=== PATIENT | female | born 1945 | race Caucasian/White ===

== ENCOUNTER → 2018-05-26 | Outpatient (REF) | payer MEDICARE, OTHER ==
[2018-05-28 08:32] LABS: CARCINOEMBRYONIC ANTIGEN 0.6 NG/ML (<2.5)
[2018-05-28 09:01] LABS: CA19-9 TUMOR MARKER,CARBOHYDRA 8.5 U/ML (<35.0)
== END ==
LOC: M LAB REF 17:24
DX: C23 Malignant neoplasm of gallbladder (principal); C24.9 Malignant neoplasm of biliary tract, unspecified
CPT/HCPCS: 82378

== ENCOUNTER → 2018-08-11 | Outpatient (CLI) | payer MEDICARE, OTHER | LOC: M PLARAD 15:14 | DX: C24.9 Malignant neoplasm of biliary tract, unspecified (principal); R93.8 Abnormal findings on diagnostic imaging of other specified body structures | CPT/HCPCS: 78815 ==

== ENCOUNTER → 2018-08-26 | Outpatient (REF) | payer MEDICARE, OTHER ==
[2018-08-27 11:51] LABS: CARCINOEMBRYONIC ANTIGEN 0.8 NG/ML (<2.5)
[2018-08-27 11:51] LABS: CA19-9 TUMOR MARKER,CARBOHYDRA 14.4 U/ML (<35.0)
== END ==
LOC: M LAB REF 13:42
DX: C79.89 Secondary malignant neoplasm of other specified sites (principal); C23 Malignant neoplasm of gallbladder
CPT/HCPCS: 82378

== ENCOUNTER 2018-11-22 05:15 | Emergency (ER) | payer MEDICARE, OTHER ==
[~2018-11-22] VITALS: Ht 144.8 cm; Wt 59.1 kg
[~2018-11-22 05:15] MED LIST: AMLO10TA4 PO; ASPI1TAB PO; ATOR40TA75 PO; CALC600T60 PO; CO Q200C10 PO; DEXA4TA PO; DIOV160T2 PO; HYDR-3910 PO; LABE10TAB PO; LIDO2.5C15 TOP; MULTCAP PO; OLAN10TA2 PO; PROC10TA4 PO; VALS160T PO; ZOFR8TAB24 PO; [UNRECOGNIZED DRUG - CODE] PO
[2018-11-22 07:34] LABS: ALBUMIN 3.2 GM/DL (3.2-5.2); ALT/SGPT 16 U/L (12-78); BILIRUBIN,DIRECT < 0.1 MG/DL (0.0-0.2); BILIRUBIN,TOTAL 0.2 MG/DL (0.2-1.0); BLOOD UREA NITROGEN 13 MG/DL (7-18); CALCIUM LEVEL 8.8 MG/DL (8.8-10.2); CARBON DIOXIDE LEVEL 27 MEQ/L (21-32); CHLORIDE LEVEL 103 MEQ/L (98-107); CREATININE FOR GFR 0.89 MG/DL (0.55-1.30); GLOMERULAR FILTRATION RATE > 60.0 (>39); GLUCOSE, FASTING 99 MG/DL (70-100); SODIUM LEVEL 136 MEQ/L (136-145); TOTAL PROTEIN 5.8 GM/DL (6.4-8.2)
[2018-11-22] MEDS ORDERED: ISOVUE-370 76% 100ML VIAL (Q9967) As Ordered ONE (07:45)
--- NOTE | 2018-11-22 09:21 | REP ---
Clinical: Abdominal pain and urinary retention with history of stage IV gallbladder carcinoma. Technique: Axial contrast enhanced images from the lung bases to the pubic symphysis with coronal and sagittal re-formations using 100 ml Isovue 370 intravenous contrast material. Delayed images of the abdomen and pelvis obtained. Comparison: None. Findings: A moderate to significant amount of ascites is identified within the pelvis. A vague areas of fatty infiltration are noted throughout the mesentery along with scattered soft tissue lesions primarily noted within the pelvis measuring up to approximately 2.8 cm maximal diameter, and findings are compatible with metastatic disease. Liver is relatively normal, but a very subtle ovoid hypodense area is noted along the lateral cortex of the right lobe (images 37-46) which measures approximately 1.5 cm maximal diameter and may reflect a metastatic implant. Splenic calcifications suggest prior granulomas disease or changes related to therapy. The patient is status post cholecystectomy. Pancreas, bilateral adrenal glands and kidneys are relatively normal. The enteric system is without obstruction or obvious acute inflammatory process and a normal appendix is identified in the right lower quadrant. Pelvis demonstrates Riley catheter in collapsed bladder along with the above mentioned large pelvic fluid collection and multiple soft tissue implants compatible with metastatic disease. No free air. No retroperitoneal adenopathy. Atherosclerotic changes to the aorta and vasculature without aneurysm. Musculoskeletal structures demonstrate degenerative changes. Lung bases demonstrate chronic-appearing changes. Impression: 1. [id number] amount of ascites in the pelvis with vague infiltration to the abdominal mesentery and multiple metastatic mass lesions in the pelvis measuring up to approximately 2.8 cm maximal diameter consistent with metastatic disease. 2. Riley catheter in collapsed bladder. 3. Possible small metastatic implant along the hepatic capsule. Electronically Signed by Basil Neal MD 11/22/2018 09:13 A
[2018-11-22 09:44] VITALS: BP 145/84
[2018-11-25] MEDS ORDERED: FLOM0.4C39 PO (10:26)
--- NOTE | 2018-11-27 08:51 | ED PDOC ---
Post-Departure Follow-Up radiology preort faxed to Michelle Painting MD Nov 27, 2018 08:51
== END 2018-11-22 09:57 | disposition home or self-care (01) ==
LOC: M ED 05:15
DX: R33.9 Retention of urine, unspecified (principal); R18.8 Other ascites; C79.9 Secondary malignant neoplasm of unspecified site; C67.9 Malignant neoplasm of bladder, unspecified
CPT/HCPCS: 36415; 51702; 74177; 80048; 80076; 81001; 99284; Q9967

== ENCOUNTER → 2018-12-16 | Outpatient (CLI) | payer MEDICARE, OTHER ==
[~2018-12-16] MED LIST changes: -AMLO10TA4 PO; +AMLO10TA5 PO; +FLOM0.4C39 PO; +TURMCAP PO; +VITAD1000T PO
--- NOTE | 2018-12-16 17:12 | REP ---
Duplex extremity venous ultrasound: Left lower extremity. History: Left leg swelling Findings: The deep veins are anechoic and fully compressible from the groin to the popliteal fossa in the left lower extremity. Color flow imaging is homogeneous. Spectral Doppler interrogation demonstrates intact respiratory variation in flow and normal manual augmentation of flow. There is no evidence of deep vein thrombosis. Impression: Negative left lower extremity duplex venous ultrasound. No evidence of deep vein thrombosis. Electronically Signed by Jose L Agustin MD 12/16/2018 05:03 P
== END ==
LOC: M RAD 16:24
PROVIDERS: ATTEND Internal Medicine Medical Oncology
DX: M79.605 Pain in left leg (principal)

== ENCOUNTER → 2019-03-30 | Outpatient (CLI) | payer MEDICARE, OTHER ==
[~2019-03-30] MED LIST changes: -ASPI1TAB PO; +ASPI81TA26 PO; -DIOV160T2 PO; +DIOV160T3 PO; +RA T500C2 PO; +XARE20TA PO
--- NOTE | 2019-04-01 07:49 | REP ---
HISTORY: History of gallbladder carcinoma. COMPARISON: PET/CT 08/11/2018 which showed hypermetabolic activity in the peritoneal and right pelvic sidewall, right anterior abdominal wall and midline abdominal wall consistent with metastatic disease. After the intravenous administration of 8.10 mCi of FDG-18 triplane whole body PET/CT was performed from the skull base to mid thigh. There is no abnormal hypermetabolic activity seen in the neck, chest, or abdomen. Activity seen previously in the abdominal musculature has abated. There is hypermetabolic activity seen in the pelvis which has the appearance of bowel activity, however, some of the activity within the pelvis is definitively not bowel as the CT scan portion of this examination shows two oval shaped adnexal masses. The left adnexal mass measures approximately 4.5 cm and the right measures approximately 5.4 cm. When this is compared to the latest prior abdominal and pelvic CT of 11/22/2018, these areas were partially obscured by a large degree of ascites. The patient has a history of previous hysterectomy, but I am uncertain if the patient is also BSO. Certainly finally could represent masses or ovarian origin. These have SUV values greater than 7. Multifocal areas of hypermetabolic activity are seen throughout the spine and when this is compared to the prior examination, the SUV readings on these areas have increased from less than 2 to up to 3.6. IMPRESSION: 1. Abnormal hypermetabolic activity seen in the pelvis of uncertain etiology but likely a combination of bowel activity and true adnexal mass activity. Pelvic ultrasonography is recommended for further evaluation along with contrast enhanced CT. 2. Vertebral body uptake as described above. This represents either chemo reactive marrow or possibly skeletal metastases. This needs to be correlated clinically as to when the patient last received chemotherapy. Review of the paperwork which has been given to me does not indicate when the patient last had chemotherapy. If the patient has not recently had chemotherapy, then I would recommend conventional bone scintigraphy to search for metastatic osseous lesions. 3. Other findings as described above. Electronically Signed by Melvin Carrasco DO 04/01/2019 04:36 P
== END ==
LOC: M PLARAD 09:22
PROVIDERS: ATTEND Internal Medicine Hematology & Oncology
DX: R93.3 Abnormal findings on diagnostic imaging of other parts of digestive tract (principal)
CPT/HCPCS: 78815; A9552

== ENCOUNTER → 2019-05-24 | Outpatient (CLI) | payer MEDICARE, OTHER ==
[~2019-05-24] MED LIST changes: +GASTROGRAFIN SOLUTION 30ML (Q9963) As Ordered ONE; +ISOVUE-370 76% 100ML VIAL (Q9967) As Ordered ONE
--- NOTE | 2019-05-24 16:07 | REP ---
CT of the chest without IV contrast: The patient has clinical history of gallbladder carcinoma. Comparison is 06/24/2018. There is a small ground-glass nodule in the apex of the left upper lobe, unchanged. There is a calcified granuloma medially in the lower lobe on image 60, unchanged. There is a tiny 2 mm lung nodule in the left upper lobe on image 32, unchanged. No other lung nodules or masses are identified. There are no infiltrates or effusions. There is no mediastinal, hilar or axillary lymph node enlargement. The thoracic aorta is unremarkable. Cardiac size is mildly enlarged. There is no pericardial effusion. Impression: There is a small ground-glass density in the apex of the left upper lobe, unchanged. There is a tiny 2 mm left upper lobe lung nodule, unchanged. There is a calcified granuloma in the left lower lobe, unchanged. There is no adenopathy, infiltrate or effusion. Electronically Signed by Patrice Dumont MD 05/24/2019 03:58 P
--- NOTE | 2019-05-24 16:17 | REP ---
CT of the abdomen pelvis without and with IV contrast and with bowel contrast: Comparison is 11/22/2018. The patient has history of gallbladder carcinoma. There are numerous surgical clips in the gallbladder fossa as previously. There is mild intrahepatic biliary duct dilatation, likely a consequence of the cholecystectomy. The hepatic parenchyma is otherwise homogeneous. The pancreas is unremarkable. Spleen is unremarkable except for splenic granulomas. The adrenals and kidneys are unremarkable. The abdominal aorta is unremarkable. There is no periaortic adenopathy. There is no bowel distension or obstruction. Pelvis: Previously there were large fluid collections in the pelvis bilaterally. These have significantly reduced in size and now accompanied by soft tissue masses posteriorly in the pelvis compatible with peritoneal metastases. The central portions of these masses are of low density. This may represent represent residual fluid from the previous cysts or central necrosis within the masses. There is no ascites. The bladder is unremarkable except that some of the peritoneal masses encroach the posterior wall of the bladder. There is no bowel obstruction. No lytic, blastic or destructive skeletal changes are identified. Impression: Multiple surgical clips in the gallbladder fossa. Multiple pelvic masses compatible with peritoneal implants versus adenopathy. There are low-density centers within these masses which could represent fluid or central necrosis. The large cysts identified in the pelvis previously are no longer present. There is no retroperitoneal adenopathy. No ascites. No bowel distension or obstruction. Electronically Signed by Patrice Dumont MD 05/24/2019 04:09 P
== END ==
LOC: M RAD 13:08
PROVIDERS: ATTEND Internal Medicine Hematology & Oncology
DX: D64.81 Anemia due to antineoplastic chemotherapy (principal)
CPT/HCPCS: 71260; 74178; Q9963; Q9967

== ENCOUNTER → 2019-09-06 | Outpatient (CLI) | payer MEDICARE, OTHER ==
[~2019-09-06] MED LIST changes: +CHOL100029 PO; -VITAD1000T PO
--- NOTE | 2019-09-06 15:17 | REP ---
CHEST, SINGLE VIEW: Single view of the chest is performed. No infiltrate is seen in either lung. Heart is upper limits of normal in size. There is calcification and tortuosity of the thoracic aorta. Mediastinal silhouette is otherwise unremarkable. There is a right central venous catheter with the tip at the junction of the superior vena cava and right atrium. Metallic prosthesis is seen in each proximal humerus. Electronically Signed by Patrice Arzola MD 09/07/2019 04:15 P
--- NOTE | 2019-09-06 15:42 | REP ---
CT of the chest with IV contrast for restaging carcinoma of the gallbladder: Comparison is 05/24/2019. There is a small ground-glass density in the apex of the left upper lobe, unchanged on image 18. There is a 3 ml nodule laterally in the left upper lobe on image 22, unchanged. There is a calcified granuloma medially in the left lower lobe on image 46, unchanged. There are no other lung nodules or masses. There are no infiltrates or pleural effusions. There is no mediastinal, hilar or axillary lymphadenopathy. The thoracic aorta is unremarkable. Cardiac size is normal. There is no pericardial effusion. There are no lytic, blastic or destructive skeletal lesions. Impression: No change from the prior study. Stable lung nodules as described. No evidence of metastatic disease. Electronically Signed by Patrice Dumont MD 09/06/2019 03:33 P
--- NOTE | 2019-09-06 16:38 | REP ---
CT of the abdomen, pelvis not included for restaging of gallbladder carcinoma: Comparison is 05/24/2019. The study is performed without and with IV contrast and with bowel contrast. After IV contrast imaging is performed initially during the portal venous phase of enhancement and repeated during the delayed equilibrium phase of enhancement. The pelvis is not included, for reasons unknown to this examiner. On the comparison study there were large pelvic masses. These cannot be evaluated on the current study as the pelvis is not included. The study is performed contiguous with the chest CT this same date. The hepatic parenchyma is homogeneous. There are no hepatic metastases. Multiple surgical clips are again identified in the gallbladder fossa as previously. The pancreas and spleen are unchanged and unremarkable. A few calcified granulomas are incidentally noted in the spleen. The adrenals are unremarkable. There is left renal hydronephrosis as an interval change. This may be secondary to the known pelvic masses. There is no right hydronephrosis. There is a small hiatal hernia. This was present previously but is slightly larger today. There is abdominal ascites surrounding the liver and spleen, in the colic gutters bilaterally as an interval change. There are numerous peritoneal implants along the anterior peritoneum as an interval change. There is an umbilical hernia containing a small volume of ascites. There is no bowel distension or obstruction. The abdominal aorta is unremarkable except for calcified atheroma. There is no retroperitoneal adenopathy or mass. The superior portions of the pelvic masses are again identified. Impression: Extensive anterior peritoneal wall implants as an interval change. Diffuse ascites surrounding the liver and spleen and in the colic gutters as an interval change. Left hydronephrosis as an interval change, possibly secondary to the pelvic masses. There is no right hydronephrosis. The pelvis is not included. Only the superior most portions of the known pelvic masses are included in the scan. Electronically Signed by Patrice Dumont MD 09/06/2019 04:29 P
== END ==
LOC: M RAD 11:08
PROVIDERS: ATTEND Internal Medicine Hematology & Oncology
DX: C23 Malignant neoplasm of gallbladder (principal); R91.8 Other nonspecific abnormal finding of lung field; K42.9 Umbilical hernia without obstruction or gangrene; R18.8 Other ascites; K44.9 Diaphragmatic hernia without obstruction or gangrene; I70.0 Atherosclerosis of aorta; N13.30 Unspecified hydronephrosis
CPT/HCPCS: 71045; 71260; 74170; Q9963; Q9967

== ENCOUNTER → 2019-09-21 | Outpatient (CLI) | payer MEDICARE, OTHER ==
[~2019-09-21] MED LIST changes: -GASTROGRAFIN SOLUTION 30ML (Q9963) As Ordered ONE; -ISOVUE-370 76% 100ML VIAL (Q9967) As Ordered ONE
[2019-09-21 15:50] VITALS: BP 125/60
--- NOTE | 2019-09-24 17:30 | REP ---
Ultrasound-guided paracentesis The procedure was performed by NILESH Terry, under the direct supervision of Dr. Arzola. The risks and benefits of the procedure were explained to the patient and informed consent was obtained both verbally and written. Directly prior to the start of the procedure, a formal timeout was completed in the procedure room. Under ultrasound guidance, the largest pocket of fluid in the left flank was localized and skin was marked. The skin was then prepped and draped in a sterile fashion. 10 ml of 1% lidocaine was used as a local anesthetic. Using ultrasound guidance, an 8-Upper Sorbian multi side-hole catheter was inserted using trocar technique. 3,300 mL of nolan colored fluid was withdrawn, 200 ml was sent to the lab for further analysis, and the rest discarded. The patient tolerated the procedure well and there were no immediate complications. After the appropriate monitored convalescence the patient was discharged from the department. Reviewed by NILESH Whitaker 09/21/2019 05:11 P Electronically Signed by Patrice Arzola MD 09/24/2019 05:20 P
== END ==
LOC: M IRPRO 14:10
PROVIDERS: ATTEND Internal Medicine Hematology & Oncology
DX: C79.9 Secondary malignant neoplasm of unspecified site (principal); C23 Malignant neoplasm of gallbladder; R18.0 Malignant ascites

== ENCOUNTER 2019-10-04 07:01 | Outpatient (CLI) | payer MEDICARE, OTHER ==
[~2019-10-04] VITALS: Ht 147.3 cm; Wt 58.0 kg
[2019-10-04] VITALS (10 sets, daily range): BP systolic 100–129; BP diastolic 47–72
[2019-10-04] MEDS ORDERED: ASPI81TA85 PO (07:45)
[2019-10-04] MEDS ORDERED: XARE20TA PO (07:45)
[2019-10-04] MEDS ORDERED: ACETAMINOPHEN TAB 650MG DOSE (2X325MG) PO ONE (08:00)
[2019-10-04] MEDS ORDERED: diphenhydrAMINE 50 MG CAP PO ONE (08:00)
[2019-10-04] MEDS ORDERED: SODIUM CHLORIDE 0.9% INJ 10 ML SYR IV SCH (09:00)
[2019-10-04] MEDS ORDERED: SODIUM CHLORIDE 0.9% INJ 10 ML SYR IV PRN (10:30)
[2019-10-05] MEDS ORDERED: SODIUM CHLORIDE 0.9% INJ 10 ML SYR IV SCH (09:00)
== END 2019-10-04 12:20 | disposition home or self-care (01) ==
LOC: M INFU 07:01
PROVIDERS: ATTEND Internal Medicine Medical Oncology
DX: D64.9 Anemia, unspecified (principal)
CPT/HCPCS: 36430; P9016; P9040

== ENCOUNTER → 2019-10-24 | Outpatient (CLI) | payer MEDICARE, OTHER ==
[~2019-10-24] MED LIST changes: +ACET1TAB55; +ASPI81TA85 PO; +HYDR12CA; +MARI5CAP PO
[2019-10-24 11:03] LABS: PLATELET COUNT, AUTOMATED 253 10^3/uL (150-450)
[2019-10-24 11:12] LABS: INR 1.36; PROTHROMBIN TIME 16.5 SECONDS (11.8-14.0)
[2019-10-24 12:00] VITALS: BP 130/57
--- NOTE | 2019-10-24 15:02 | REP ---
Ultrasound-guided paracentesis The procedure was performed by NILESH Terry, under the direct supervision of Dr. Arzola. The risks and benefits of the procedure were explained to the patient and informed consent was obtained both verbally and written. Directly prior to the start of the procedure, a formal timeout was completed in the procedure room. Under ultrasound guidance, the largest pocket of fluid in the left flank was localized and skin was marked. The skin was then prepped and draped in a sterile fashion. 10 ml of 1% lidocaine was used as a local anesthetic. Using ultrasound guidance, an 8-Slovenian multi side-hole catheter was inserted using trocar technique. 2,300 mL of red tinged colored fluid was withdrawn and discarded. The patient tolerated the procedure well and there were no immediate complications. After the appropriate monitored convalescence the patient was discharged from the department. Reviewed by NILESH Whitaker 10/24/2019 01:18 P Electronically Signed by Patrice Arzola MD 10/24/2019 02:53 P
== END ==
LOC: M IRPRO 10:04
PROVIDERS: ATTEND Internal Medicine Hematology & Oncology
DX: C23 Malignant neoplasm of gallbladder (principal)

== ENCOUNTER 2019-11-01 08:17 | Outpatient (CLI) | payer MEDICARE, OTHER ==
[2019-11-01] VITALS (9 sets, daily range): BP systolic 30–122; BP diastolic 44–62
[~2019-11-01] VITALS: Ht 144.8 cm; Wt 57.2 kg
[~2019-11-01 08:17] MED LIST changes: +ACETAMINOPHEN TAB 650MG DOSE (2X325MG) PO SCH; +diphenhydrAMINE 25 MG CAP PO SCH
[2019-11-01] MEDS ORDERED: SODIUM CHLORIDE 0.9% INJ 10 ML SYR IV PRN (13:00)
[2019-11-02] MEDS ORDERED: SODIUM CHLORIDE 0.9% INJ 10 ML SYR IV SCH (09:00)
== END 2019-11-01 13:15 | disposition home or self-care (01) ==
LOC: M INFU 08:17
PROVIDERS: ATTEND Internal Medicine Medical Oncology
DX: C23 Malignant neoplasm of gallbladder (principal); Z88.7 Allergy status to serum and vaccine; Z91.012 Allergy to eggs
CPT/HCPCS: 36430; P9016

== ENCOUNTER → 2019-11-07 | Outpatient (CLI) | payer MEDICARE, OTHER ==
[~2019-11-07] MED LIST changes: -ACETAMINOPHEN TAB 650MG DOSE (2X325MG) PO SCH; +GASTROGRAFIN SOLUTION 30ML (Q9963) As Ordered ONE; +ISOVUE-370 76% 100ML VIAL (Q9967) As Ordered ONE; -diphenhydrAMINE 25 MG CAP PO SCH
--- NOTE | 2019-11-07 14:46 | REP ---
REASON: Followup. Patient has a history of carcinoma of the gallbladder. All prior abdominal CTs were reviewed, the latest of which is dated 09/06/2019. CONTRAST: 100 mL Isovue 370. The lung bases are stable. There is ascites which is unchanged from the latest prior exam. The liver and spleen are unchanged. The pancreas and adrenal glands are unchanged. The kidneys are unchanged. There is left sided hydronephrosis and hydroureter status quo. There is omental caking. This is unchanged when compared to the latest prior exam but has increased significantly when compared to the next latest prior of 05/24/2019. There is retroperitoneal/paraaortic adenopathy. This is essentially unchanged compared to the latest prior exam. There is no significant change in the appearance of the bowel loops. There are two small ventral hernias status quo and again, through which only mesentery protrudes. Bone window technique through the examination shows no significant in appearance of the osseous structures. IMPRESSION: Ascites, adenopathy, and metastatic peritoneal disease as described above. Other findings as described above. Electronically Signed by Melvin Carrasco DO 11/07/2019 03:44 P
== END ==
LOC: M RAD 12:54
PROVIDERS: ATTEND Internal Medicine Hematology
DX: C23 Malignant neoplasm of gallbladder (principal); K43.9 Ventral hernia without obstruction or gangrene
CPT/HCPCS: 74160; Q9963; Q9967

== ENCOUNTER → 2019-11-10 | Outpatient (CLI) | payer MEDICARE, OTHER ==
[~2019-11-10] MED LIST changes: -GASTROGRAFIN SOLUTION 30ML (Q9963) As Ordered ONE; -ISOVUE-370 76% 100ML VIAL (Q9967) As Ordered ONE
[2019-11-10 12:52] VITALS: BP 124/58
--- NOTE | 2019-11-11 17:19 | REP ---
Ultrasound-guided paracentesis The procedure was performed under the direct supervision of Dr. Arzola. The risks and benefits of the procedure were explained to the patient and informed consent was obtained. The largest pocket of fluid was localized in the left flank using ultrasound guidance. The skin was prepped and draped in a sterile fashion. 1% lidocaine was used as a local anesthetic. Using ultrasound guidance an 8-Anguillan multi side-hole catheter was inserted using trocar technique. 2600 ml of low viscosity red colored fluid was withdrawn and discarded. The patient tolerated the procedure well and there were no immediate complications. After the appropriate amount of monitored convalescence the patient was discharged from the department. Electronically Signed by NILESH Kendall 11/10/2019 04:33 P Electronically Signed by Patrice Arzola MD 11/11/2019 05:09 P
== END ==
LOC: M IRPRO 11:50
PROVIDERS: ATTEND Internal Medicine Hematology
DX: C78.6 Secondary malignant neoplasm of retroperitoneum and peritoneum (principal); C23 Malignant neoplasm of gallbladder; R18.0 Malignant ascites

== ENCOUNTER → 2019-11-21 | Outpatient (CLI) | payer MEDICARE, OTHER ==
--- NOTE | 2019-11-21 14:40 | REP ---
Bilateral lower extremity Duplex Doppler venous ultrasound: Real time compression and duplex Doppler interrogation of the bilateral lower extremity deep venous system is performed. Bilaterally, the common femoral, superficial femoral and popliteal veins are fully compressible with transducer pressure and demonstrate normal spontaneous and phasic flow, without evidence of deep venous thrombosis. Impression: No evidence of deep venous thrombosis of the bilateral lower extremity femoral popliteal venous system. Electronically Signed by Patrice Arzola MD 11/21/2019 02:31 P
== END ==
LOC: M RAD 13:52
PROVIDERS: ATTEND Internal Medicine Hematology
DX: R60.9 Edema, unspecified (principal); C23 Malignant neoplasm of gallbladder

== ENCOUNTER 2019-11-25 10:31 | Emergency (ER) | payer MEDICARE, OTHER ==
[~2019-11-25] VITALS: Ht 144.8 cm; Wt 56.2 kg
[~2019-11-25 10:31] MED LIST changes: -VITA100066 PO
[2019-11-25] MEDS ORDERED: LIDOCAINE 2% 5ML JELLY UROJET TOP ONE (11:15)
[2019-11-25 12:26] LABS: HEMATOCRIT 23.4 % (36.0-47.0); HEMOGLOBIN 7.5 g/dl (12.0-15.5); MEAN CORPUSCULAR HEMOGLOBIN 28.3 pg (27.0-33.0); MEAN CORPUSCULAR HGB CONC 32.1 g/dl (32.0-36.5); MEAN CORPUSCULAR VOLUME 88.3 fl (80.0-96.0); PLATELET COUNT, AUTOMATED 240 10^3/uL (150-450); RED BLOOD COUNT 2.65 10^6/uL (4.00-5.40); WHITE BLOOD COUNT 3.6 10^3/uL (4.0-10.0)
[2019-11-25 12:53] LABS: ATYPICAL LYMPH 1 % (0-5); EOSINOPHILS 3 % (0-3); LYMPHOCYTES 6 % (16-44); MONOCYTES 2 % (0-5); NEUTROPHILS 87 % (28-66); PLATELET ESTIMATE NORMAL (NORMAL)
[2019-11-25 12:55] LABS: ANISOCYTOSIS 2+; CALCIUM LEVEL 8.9 MG/DL (8.8-10.2); CREATININE FOR GFR 1.17 MG/DL (0.55-1.30); GLOMERULAR FILTRATION RATE 48.1 (>39); OVALOCYTES 1+; POIKILOCYTOSIS 2+; POTASSIUM SERUM 4.4 MEQ/L (3.5-5.1); SCHISTOCYTES 1+
[2019-11-25 13:33] VITALS: BP 117/58
[2019-11-28] MEDS ORDERED: VITA100066 PO (10:48)
== END 2019-11-25 13:55 | disposition home or self-care (01) ==
LOC: M ED 10:31
DX: R33.9 Retention of urine, unspecified (principal); I10 Essential (primary) hypertension; Z79.899 Other long term (current) drug therapy; Z79.82 Long term (current) use of aspirin; Z79.01 Long term (current) use of anticoagulants; Z88.7 Allergy status to serum and vaccine; Z91.012 Allergy to eggs

== ENCOUNTER → 2019-11-25 | Outpatient (CLI) | payer MEDICARE, OTHER ==
[~2019-11-25] MED LIST changes: +VITA100066 PO
[2019-11-25 15:15] VITALS: BP 115/59
--- NOTE | 2019-11-25 17:17 | REP ---
Ultrasound-guided paracentesis The procedure was performed by NILESH Terry, under the direct supervision of Dr. Arzola. The risks and benefits of the procedure were explained to the patient and informed consent was obtained both verbally and written. Directly prior to the start of the procedure, a formal timeout was completed in the procedure room. Under ultrasound guidance, the largest pocket of fluid in the left flank was localized and skin was marked. The skin was then prepped and draped in a sterile fashion. 10 ml of 1% lidocaine 10 mg/ml was used as a local anesthetic. Using ultrasound guidance, an 8-Turkish multi side-hole catheter was inserted using trocar technique. 1,500 mL of red colored fluid was withdrawn and discarded. The patient tolerated the procedure well and there were no immediate complications. After the appropriate monitored convalescence the patient was discharged from the department. Reviewed by NILESH Whitaker 11/25/2019 04:08 P Electronically Signed by Patrice Arzola MD 11/25/2019 05:08 P
== END ==
LOC: M IRPRO 13:58
PROVIDERS: ATTEND Internal Medicine Hematology
DX: R18.8 Other ascites (principal); C23 Malignant neoplasm of gallbladder

== ENCOUNTER → 2019-12-09 | Outpatient (CLI) | payer MEDICARE, OTHER ==
[~2019-12-09] MED LIST changes: +STIV40TA PO; -VALS160T PO; +VALS160T2 PO; +VITA100066 PO
[2019-12-09 15:00] VITALS: BP 137/64
--- NOTE | 2019-12-10 04:42 | REP ---
Ultrasound-guided paracentesis The procedure was performed under the direct supervision of Dr. Agustin. The risks and benefits of the procedure were explained to the patient and informed consent was obtained. The largest pocket of fluid was localized in the left flank using ultrasound guidance. The skin was prepped and draped in a sterile fashion. 1% lidocaine was used as a local anesthetic. An 8-Vincentian multi side-hole catheter was inserted using trocar technique. 4800 ml of low viscosity red colored fluid was withdrawn and discarded. The patient tolerated the procedure well and there were no immediate complications. After the appropriate amount of monitored convalescence the patient was discharged from the department. Electronically Signed by NILESH Kendall 12/09/2019 05:56 P Electronically Signed by Jose L Agustin MD 12/10/2019 04:33 A
== END ==
LOC: M IRPRO 13:11
PROVIDERS: ATTEND Internal Medicine Hematology
DX: C67.9 Malignant neoplasm of bladder, unspecified (principal)

== ENCOUNTER → 2019-12-12 | Outpatient (CLI) | payer MEDICARE, OTHER ==
[~2019-12-12] MED LIST changes: -ACET1TAB55; +ACET1TAB55 PO; +ASCO500T PO; +CALCTAB7 PO; +HYOS125TA PO; +LORA0.5T5 PO; +MORP20SO3 PO; +VITA100054 PO
--- NOTE | 2019-12-12 13:18 | REP ---
Duplex extremity venous ultrasound: Left lower extremity. History: Question DVT left lower extremity. Findings: The deep veins are anechoic and fully compressible from the groin to the popliteal fossa in the left lower extremity. Color flow imaging is homogeneous. Spectral Doppler interrogation demonstrates intact respiratory variation in flow and normal manual augmentation of flow. There is no evidence of deep vein thrombosis. Impression: Negative left lower extremity duplex venous ultrasound. No evidence of deep vein thrombosis. Electronically Signed by Jose L Agustin MD 12/12/2019 01:10 P
== END ==
LOC: M RAD 12:37
PROVIDERS: ATTEND Internal Medicine Hematology
DX: M79.605 Pain in left leg (principal); R22.42 Localized swelling, mass and lump, left lower limb

== ENCOUNTER 2019-12-19 11:31 | Inpatient (IN) | payer MEDICARE, OTHER ==
[~2019-12-19 11:31] MED LIST changes: -ASCO500T PO; -CALCTAB7 PO; -HYOS125TA PO; -LORA0.5T5 PO; -MORP20SO3 PO; -VITA100054 PO
--- NOTE | 2019-12-19 13:09 | REP ---
Duplex extremity venous ultrasound: Bilateral lower extremities. History: Right leg pain left leg swelling. Rule out DVT. Findings: The deep veins are anechoic and fully compressible from the groin to the popliteal fossa in the left and right lower extremity. Color flow imaging is homogeneous. Spectral Doppler interrogation demonstrates intact respiratory variation in flow and normal manual augmentation of flow. There is no evidence of deep vein thrombosis. In the popliteal fossa on the left there is a fluid collection consistent with a Delarosa's cyst measuring 2.5 x 2.38 x 1.1 cm. Impression: Small Delarosa's cyst left popliteal soft tissues. Otherwise negative bilateral lower extremity duplex venous ultrasound. No evidence of deep vein thrombosis. Electronically Signed by Jose L Agustin MD 12/19/2019 01:01 P
--- NOTE | 2019-12-19 13:35 | REP ---
Right tibia and fibula: Two views. History: Leg pain. Rule out occult fracture. Findings: Mild soft tissue swelling is seen in the calf soft tissues. There is Achilles and plantar calcaneal spurring. A right knee arthroplasty is seen in position. There is no evidence of fracture, periosteal reaction, or bony destructive lesion. Impression: Mild diffuse soft tissue swelling. Right knee arthroplasty. Heel spurs. No acute bony abnormality. Electronically Signed by Jose L Agustin MD 12/19/2019 07:47 P
[2019-12-19 14:17] LABS: BASO % 0.4 % (0.0-1.0); EOS # 0.1 10^3/uL (0.0-0.5); EOS % 1.2 % (0.0-3.0); HEMATOCRIT 28.3 % (36.0-47.0); LYMPH # 0.6 10^3/uL (1.5-5.0); LYMPH % 12.7 % (24.0-44.0); MEAN CORPUSCULAR HEMOGLOBIN 28.4 pg (27.0-33.0); MEAN CORPUSCULAR HGB CONC 31.8 g/dl (32.0-36.5); MEAN CORPUSCULAR VOLUME 89.3 fl (80.0-96.0); MONO # 0.2 10^3/uL (0.0-0.8); MONO % 3.9 % (0.0-5.0); NEUTROPHILS % 80.8 % (36.0-66.0); PLATELET COUNT, AUTOMATED 356 10^3/uL (150-450); RED BLOOD COUNT 3.17 10^6/uL (4.00-5.40); WHITE BLOOD COUNT 4.9 10^3/uL (4.0-10.0)
[2019-12-19 14:46] LABS: ALBUMIN 2.4 GM/DL (3.2-5.2); ALT/SGPT 13 U/L (12-78); BILIRUBIN,DIRECT 0.2 MG/DL (0.0-0.2); BILIRUBIN,TOTAL 0.5 MG/DL (0.2-1.0); BLOOD UREA NITROGEN 24 MG/DL (7-18); CALCIUM LEVEL 8.9 MG/DL (8.8-10.2); CARBON DIOXIDE LEVEL 24 MEQ/L (21-32); CHLORIDE LEVEL 99 MEQ/L (98-107); CK-MB VALUE MASS < 1.0 NG/ML (<3.6); CPK CREATINE PHOSPHOKINASE 32 U/L (26-192); CREATININE FOR GFR 1.44 MG/DL (0.55-1.30); GLOMERULAR FILTRATION RATE 37.8 (>39); GLUCOSE, FASTING 91 MG/DL (70-100); LIPASE 89 U/L (73-393); MB/CK RELATIVE INDEX 3.12 (< OR =4); POTASSIUM SERUM 4.7 MEQ/L (3.5-5.1); SODIUM LEVEL 135 MEQ/L (136-145); TOTAL PROTEIN 5.3 GM/DL (6.4-8.2); TROPONIN I < 0.02 NG/ML (< 0.10)
[2019-12-19] MEDS ORDERED: ISOVUE-370 76% 100ML VIAL (Q9967) As Ordered ONE (14:54)
--- NOTE | 2019-12-19 15:55 | REP ---
CT of the chest with IV contrast for shortness of breath: Comparison is 09/06/2019. On the comparison study. There is additional clinical history of gallbladder carcinoma. There are no infiltrates or pleural effusions. In the upper abdomen there is diffuse ascites surrounding the liver and spleen, this is unchanged. There are no emboli in the pulmonary trunk or central pulmonary arteries. There are no emboli in the pulmonary lobe or segment branches. There is a right IJ central venous catheter, unchanged. There is a small ground-glass density in the left upper lobe on image 14, and a 3 mm lung nodule in the left upper lobe on image 18, and a calcified granuloma medially in the left lower lobe on image 43. These are unchanged. There are no new lung nodules or masses. The thoracic aorta is unremarkable except for calcified atheroma. Cardiac size is normal. There is no pericardial effusion. There is no hilar, mediastinal or axillary lymph node enlargement. There is a left shoulder arthroplasty. This is unchanged. Impression: There are no pulmonary emboli. There are no infiltrates or pleural effusions. There are lung nodules as described. There are no new lung nodules or masses. No adenopathy. Upper abdominal ascites, unchanged. Right IJ central venous catheter, unchanged. Left shoulder arthroplasty, unchanged. Electronically Signed by Patrice Dumont MD 12/19/2019 03:45 P
--- NOTE | 2019-12-19 16:25 | REP ---
CT of the abdomen /pelvis with IV contrast, without bowel contrast, for generalized abdominal pain: Comparison studies are the CT of the abdomen of 08/19/2019, CT of the abdomen of 09/06/[address] of the abdomen/pelvis of 05/24/2019. On the comparison studies the patient has history of gallbladder carcinoma. There is diffuse abdominal ascites is similar to slightly greater than 11/07/2019. There are surgical clips in the gallbladder fossa, unchanged. There are numerous peritoneal implants. Suspect that these have increased in size from 11/07/2019 . There is right hydronephrosis as an interval change. There is left hydronephrosis, unchanged. I suspect that the hydronephrosis is secondary to peritoneal implants. The peritoneal implants appear to have increased in size. The hepatic parenchyma is homogeneous. In the gallbladder fossa are unchanged. The pancreas is unremarkable. The enhancement pattern of the spleen is mottled, likely from contrast enhancement during the arterial phase. There are bilateral adrenal masses at the inferior tip of the adrenals, as a change from the prior studies. There is periaortic adenopathy. This has increased from the 11/07/2019 study. There is calcified atheroma in the abdominal aorta, unchanged. There is no aortic aneurysm. There are fluid filled loops of small bowel that are borderline dilated. There is no colonic distension. Pelvis: There is report of a hysterectomy. There are bilateral pelvic masses that have increased in size, likely adenopathy. The bladder is distended. I suspect that the loops of the distal sigmoid colon are partially incorporated into the pelvic masses. Impression: History of gallbladder carcinoma. Multiple abdominal and pelvic peritoneal implants. Peritoneal adenopathy resulting in masses. Bilateral hydronephrosis, likely secondary to ureteral obstruction from the pelvic masses. The periaortic adenopathy. Bilateral adrenal masses. Borderline dilated fluid-filled loops of small bowel. The loops of distal sigmoid colon or possibly incorporated some of the pelvic masses. There is no colonic obstruction. Electronically Signed by Patrice Dumont MD 12/19/2019 04:16 P
[2019-12-19] MEDS ORDERED: VITA100054 PO (17:10)
[2019-12-19] MEDS ORDERED: LABE10TAB PO (17:10)
[2019-12-19] MEDS ORDERED: ASCO500T PO (17:10)
[2019-12-19] MEDS ORDERED: CALCTAB7 PO (17:10)
[2019-12-19] MEDS ORDERED: MOM 30ML SUSPENSION UDC PO PRN (17:30)
[2019-12-19] MEDS ORDERED: MAALOX 30 ML SUSP *UDC PO PRN (17:30)
[2019-12-19] MEDS ORDERED: ONDANSETRON 4MG/2ML VIAL (J2405) IV PRN (17:45)
[2019-12-19] MEDS ORDERED: MORPHINE 4 MG/ML 1ML VIAL/SYRINGE (J2270) IV PRN (17:45)
--- NOTE | 2019-12-19 17:53 | HPEPDOC ---
General Date of Admission 12/19/19 Date of Service: Dec 19, 2019 Chief Complaint The patient is a 74-year-old female admitted with a reason for visit of Urinary Pain. Source: Patient, Caregiver Exam Limitations: No limitations Timing/Duration: Other Severity: Mild (few days) Associated Symptoms: Other (. Bilateral leg pains and abdominal pain) History of Present Illness This is 73 years old white female with past medical history of for aggressive gallbladder carcinoma. Also, history of ascites, PE is receiving chemotherapy at the [facility] came in with a chief complaint of unable to urinate. Also complaining of swelling of left leg and pain in her both legs and also di stention of abdomen since last few days. As per patient, patient abdominal pain is dull, persistent increases on palpation. No relief with meds only gets relief with paracentesis, nonradiating and associated nausea. Pain has been present since last few days. Patient denies any complaints of chest pain, shortness of breath, syncope, etc. Home Medications Scheduled Ascorbic Acid (Ascorbic Acid) 500 Mg Tablet, 500 MG PO DAILY, (Reported) Aspirin (Aspir 81) 81 Mg Tablet.dr, 81 MG PO DAILY, (Reported) Atorvastatin Calcium (Atorvastatin Calcium) 40 Mg Tab, 40 MG PO DAILY, (Reporte d) Calcium Carbonate (Calcium) 600 Mg Tablet, 600 MG PO DAILY, (Reported) Cholecalciferol (Vitamin D3) (Vitamin D3) 1,000 Unit Capsule, 2,000 UNIT PO DAILY, (Reported) Labetalol HCl (Labetalol HCl) 100 Mg Tab, 50 MG PO QAM, (Reported) Labetalol HCl (Labetalol HCl) 100 Mg Tablet, 100 MG PO QHS, (Reported) Lidocaine/Prilocaine (Lidocaine-Prilocaine Cream) 1 Cre Cre, 1 APLCT TOP ASDIRECTED APPLY DIME SIZE AMOUNT TO PORT 1-2 HOURS PRIOR TO OFFICE VISIT AND CHEMOTHERAPY TREATMENTS Multivitamin (Multivitamins) 1 Cap Cap, 1 CAP PO DAILY, (Reported) Rivaroxaban (Xarelto) 20 Mg Tablet, 20 MG PO QPM, (Reported) Turmeric Root Extract (Turmeric) 500 Mg Capsule, 500 MG PO DAILY, (Reported) Ubidecarenone (Co Q-10) 200 Mg Cap, 200 MG PO DAILY, (Reported) Scheduled PRN Acetaminophen (Acetaminophen) 325 Mg Tablet, 650 MG PO QID PRN for PAIN, (Reported) Ondansetron HCl (Zofran) 8 Mg Tab, 8 MG PO Q6HP PRN for NAUSEA one tablet by mouth every 6 hours as needed for nausea Prochlorperazine Maleate (Prochlorperazine Maleate) 10 Mg Tab, 10 MG PO Q8H PRN for NAUSEA take one tablet by mouth every 8 hours as needed for nausea Allergies Coded Allergies: Egg Derived (Verified Allergy, Unknown, 02/23/19) egg (Verified Allergy, Unknown, 02/23/19) influenza virus vacc trivalent, spl (Verified Allergy, Unknown, 02/23/19) tetanus toxoid, adsorbed (Verified Allergy, Unknown, 02/23/19) Past Medical History Medical History Carcinoma of the gallbladder, hypertension, hyperlipidemia, vitamin B12 deficiency, PE Surgical History Coppertone levels surgery, right thumb, right knee surgery for right frozen thumb surgery, hysterectomy, MediPort placement. Biopsy of the liver, and bunionectomy Family History Significant Family History: No pertinent family hx Social History * Smoker: Denies Alcohol: Denies Drugs: denies A-FIB/CHADSVASC A-FIB History Current/History of A-Fib/PAF?: No Current PO Anticoag Therapy: Yes Review of Systems Constitutional: Denies: Chills, Fever, Malaise, Night Sweats, Weakness, Fatigue, Weight Loss, Lethargy, Other Eyes: Denies: Pain, Vision change, Conjunctivae inflammation, Eyelid inflammation, Redness, Other ENT: Denies: Head Aches, Ear Pain, Dysphagia, Sinus Congestion, Post Nasal Drip, Sore Throat, Epistaxis, Other Symptoms Skin: Denies: Rash, Lesions, Jaundice, Bruising, Itching, Dry, Breakdown, Nail Changes, Other Pulmonary: Denies: Dyspnea, Cough, Pleuritic Chest Pain, Other Symptoms Cardiovascular: Denies: Chest Pain, Palpitations, Orthopnea, Paroxysmal Noc. Dyspnea, Edema, Lt Headedness, Other Symptoms Gastrointestinal: Reports: Abdominal Pain Genitourinary: Denies: Dysuria, Frequency, Incontinence, Hematuria, Retention, Other Symptoms Hematologic: Denies: Bruising, Bleeding Excessively, Petecchia, Purpura, Enlarged Lymph Nodes, Other Hematologic Endocrine: Denies: Polydipsia, Polyphagia, Polyuria, Heat Intolerance, Cold Intolerance, Other Endocrine Sx Musculoskeletal: Reports: Other Symptoms (, bilateral leg pain and abdominal pain); Denies: Neck Pain, Back Pain, Shoulder Pain, Arm Pain, Hand Pain, Leg Pain, Foot Pain, Joint Pain, Muscle Pain, Spasms Neurological: Denies: Weakness, Numbness, Incoordination, Change in speech, Confusion, Seizures, Other Symptoms Psych: Denies: Mood Normal, Anxiety, Depression, Memory Issues, Thoughts of Self Harm, Anger, Thoughts of Harming Other, Other Psych Physical Examination General Exam: Positive: Alert, Cooperative Eye Exam: Positive: PERRLA, Conjunctiva & lids normal ENT Exam: Positive: Atraumatic Neck Exam: Positive: Supple Chest Exam: Positive: Clear to auscultation, Normal air movement Heart Exam: Positive: Rate Normal, Normal S1, Normal S2 Abdomen Exam: Positive: Other (, distended, mild tenderness all over the abdomen. Bowel sounds present) Extremity Exam: Positive: Other (. Bilateral bipedal edema) Skin Exam: Positive: Nl turgor and temperature Neuro Exam: Positive: Strength at 5/5 X4 ext, Sensation Intact, Cranial Nerves 3-12 NL Psych Exam: Positive: Mood NL, Oriented x 3 Vital Signs Vital Signs Date Time Temp Pulse Resp B/P (MAP) Pulse Ox O2 Delivery O2 Flow Rate FiO2 12/19/19 16:30 85 139/67 (91) 95 Room Air 12/19/19 11:31 97.3 16 Laboratory Data Labs 24H Laboratory Tests 2 12/19/19 12:07: Urine Color YELLOW, Urine Appearance CLEAR, Urine pH 5.0, Urine Specific [place] 1.017, Urine Protein NEGATIVE, Urine Glucose (UA) NEGATIVE, Urine Ketones NEGATIVE, Urine Blood NEGATIVE, Urine Nitrite NEGATIVE, Urine Bilirubin NEGATIVE, Urine Urobilinogen 0.2, Urine Leukocyte Esterase NEGATIVE, Urine WBC (Auto) 2, Urine RBC (Auto) 26H, Urine Hyaline Casts (Auto) 0, Urine Bacteria (Auto) NEGATIVE, Urine Squamous Epithelial Cells 0, Urine Uric Acid Crystals (Auto) SMALL, Urine Amorphous Sediment SMALLH, Urine Sperm (Auto) 12/19/19 14:02: Immature Granulocyte % (Auto) 1.0, Neutrophils (%) (Auto) 80.8H, Lymphocytes (%) (Auto) 12.7L, Monocytes (%) (Auto) 3.9, Eosinophils (%) (Auto) 1.2, Basophils (%) (Auto) 0.4, Neutrophils # (Auto) 4.0, Lymphocytes # (Auto) 0.6L, Monocytes # (Auto) 0.2, Eosinophils # (Auto) 0.1, Basophils # (Auto) 0.0, Nucleated Red Blood Cells % (auto) 0.0, Anion Gap 12, Glomerular Filtration Rate 37.8L, Calcium Level 8.9, Total Bilirubin 0.5, Direct Bilirubin 0.2, Aspartate Amino Transf (AST/SGOT) 28, Alanine Aminotransferase (ALT/SGPT) 13, Alkaline Phosphatase 58, Total Creatine Kinase 32, Creatine Kinase MB < 1.0, Creatine Kinase MB Relative Index 3.12, Troponin I < 0.02, Total Protein 5.3L, Albumin 2.4L, Albumin/Globulin Ratio 0.83L, Lipase 89, Thyroid Stimulating Hormone (TSH) 2.240, Free Thyroxine 1.60H CBC/BMP Laboratory Tests 12/19/19 14:02 Problems (1) Cancer of gallbladder Onset Date: ~ 2017 Status: Acute Problem Text: 73 years old lady diagnosed with gallbladder carcinoma under chemotherapy at [facility]. , Heart rate is 85, blood pressure 139/67, pulse ox 95% on room air Patient. WBC count is 4.9, hemoglobin 9, hematocrit 29.3, platelets 356. Electrolytes are normal with BUN 24, creatinine 1.44. Urine showed RBC [address] abdomen and pelvis shows multiple abdominal pelvic pericardial implants, peritoneal adenopathy which looks like masses. Bilateral hydronephrosis secondary to ureteral obstruction from pelvic masses Periaortic adenopathy, bilateral adrenal masses borderline dilated fluid-filled loops of small bowel and loops of sigmoid colon and possibly incorporated some of the pelvic masses but no small bowel or large bowel obstruction Admit patient to MedSurg floor IV fluids normal saline at 70 mL per hour Pain management with morphine 4 mg IV every 4 hours when necessary Zofran 4 mg IV every 4 hours when necessary for nausea, vomiting Riley's catheter for urinary obstruction Hold apixaban, temperature paracentesis performed and done DVT prophylaxis with bilateral SCDs Continue all home meds Had extensive discussion with patient and her stepdaughter at bedside and poor prognosis was explained and patient was given the option of hospice or comfort care measures. Considering patient's extended and basal carcinoma, not responding to chemotherapy. Patient and family will think about it and will inform me (2) Malignant ascites Status: Acute Problem Text: Will get therapeutic paracentesis done tomorrow with INR Labs in a.m. (3) Urinary (tract) obstruction Status: Chronic Problem Text: Secondary to ureteral obstruction bilaterally by pelvic masses Will place a Riley catheter and and monitor I&O's Might require nephrostomy tube if unable to drain by placing Riley in the bladder Plan / VTE VTE Prophylaxis Ordered?: Yes KENYA GUEVARA MD Dec 19, 2019 17:53
[2019-12-19 21:00] VITALS: BP 153/83
[2019-12-19] MEDS ORDERED: HEPARIN SOD (PORCINE) 5000 UNITS/ML VIAL SC SCH (21:00)
[2019-12-19] MEDS ORDERED: RIVAROXABAN 20 MG TAB (XARELTO) PO SCH (21:00)
[2019-12-19 21:10] LABS: HEMATOCRIT 29.4 % (36.0-47.0); HEMOGLOBIN 9.4 g/dl (12.0-15.5); MEAN CORPUSCULAR HEMOGLOBIN 28.1 pg (27.0-33.0); MEAN CORPUSCULAR VOLUME 87.8 fl (80.0-96.0); PLATELET COUNT, AUTOMATED 365 10^3/uL (150-450); RED BLOOD COUNT 3.35 10^6/uL (4.00-5.40); WHITE BLOOD COUNT 5.7 10^3/uL (4.0-10.0)
[2019-12-19 21:48] LABS: ALBUMIN 2.5 GM/DL (3.2-5.2); BILIRUBIN,TOTAL 0.4 MG/DL (0.2-1.0); CALCIUM LEVEL 9.1 MG/DL (8.8-10.2); CREATININE FOR GFR 1.52 MG/DL (0.55-1.30); GLOMERULAR FILTRATION RATE 35.5 (>39); POTASSIUM SERUM 4.9 MEQ/L (3.5-5.1); TOTAL PROTEIN 5.4 GM/DL (6.4-8.2)
[2019-12-19] MEDS: LABETALOL 100 MG TAB PO SCH (22:10)
[2019-12-19] MEDS: ACETAMINOPHEN TAB 650MG DOSE (2X325MG) PO PRN (22:11)
[2019-12-19] MEDS: DOCUSATE SODIUM 100 MG CAP PO SCH (22:11)
[2019-12-20 05:33] VITALS: BP 126/55
[2019-12-20 06:05] VITALS: BP 115/58
[2019-12-20] MEDS ORDERED: PILL CUTTER 1 EACH XX PRN (06:15)
[2019-12-20] MEDS ORDERED: ASPIRIN 81 MG ENTERIC TAB PO SCH (09:00)
[2019-12-20] MEDS: ASCORBIC ACID 500 MG TAB PO SCH (09:44)
[2019-12-20] MEDS: VITAMIN D 1,000 INTERNATIONAL UNITS TABLET PO SCH (09:44)
[2019-12-20] MEDS: DOCUSATE SODIUM 100 MG CAP PO SCH ×2 (09:44→20:59)
[2019-12-20] MEDS: ATORVASTATIN 20 MG TAB PO SCH (09:44)
[2019-12-20] MEDS: LABETALOL 100 MG TAB PO SCH ×2 (09:47→20:59)
--- NOTE | 2019-12-20 10:42 | IPNPDOC ---
Subjective Date Seen The patient was seen on 12/20/19. Subjective Chief Complaint/HPI Patient is awaiting paracentesis in no apparent distress again comfort care and hospice care was extensively discussed with her General: Denies: ROS Unobtainable, Chills, Night Sweats, Fatigue, Malaise, Normal Appetite, Other Symptoms Constitutional: Denies: Chills, Fever, Malaise, Night Sweats, Weakness, Fatigue, Weight Loss, Lethargy, Other Skin: Denies: Rash, Lesions, Jaundice, Bruising, Itching, Dry, Breakdown, Nail Changes, Other Pulmonary: Denies: Dyspnea, Cough, Pleuritic Chest Pain, Other Symptoms Cardiovascular: Denies: Chest Pain, Palpitations, Orthopnea, Paroxysmal Noc. Dyspnea, Edema, Lt Headedness, Other Symptoms Gastrointestinal: Denies: Nausea, Vomiting, Abdominal Pain, Diarrhea, Constipat ion, Melena, Hematochezia, Other Symptoms Musculoskeletal: Denies: Neck Pain, Back Pain, Shoulder Pain, Arm Pain, Hand Pain, Leg Pain, Foot Pain, Joint Pain, Muscle Pain, Spasms, Other Symptoms Neurological: Denies: Weakness, Numbness, Incoordination, Change in speech, Confusion, Seizures, Other Symptoms Objective Physical Examination Neck Exam: Positive: Supple Chest Exam: Positive: Clear to auscultation, Normal air movement Heart Exam: Positive: Rate Normal, Normal S1, Normal S2 Abdomen Exam: Positive: Other (, distended, mild tenderness all over the abdomen. Bowel sounds present) Extremity Exam: Positive: Other (. Bilateral bipedal edema) Skin Exam: Positive: Nl turgor and temperature Neuro Exam: Positive: Strength at 5/5 X4 ext, Sensation Intact, Cranial Nerves 3-12 NL Psych Exam: Positive: Mood NL, Oriented x 3 Assessment /Plan Problems (1) Cancer of gallbladder Status: Chronic Problem Text: 73 years old lady diagnosed with gallbladder carcinoma under chemotherapy at [facility]. , Heart rate is 85, blood pressure 139/67, pulse ox 95% on room air Patient. WBC count is 4.9, hemoglobin 9, hematocrit 29.3, platelets 356. Electrolytes are normal with BUN 24, creatinine 1.44. Urine showed RBC [address] abdomen and pelvis shows multiple abdominal pelvic pericardial implants, peritoneal adenopathy which looks like masses. Bilateral hydronephrosis secondary to ureteral obstruction from pelvic masses Periaortic adenopathy, bilateral adrenal masses borderline dilated fluid-filled loops of small bowel and loops of sigmoid colon and possibly incorporated some of the pelvic masses but no small bowel or large bowel obstruction Admit patient to MedSur floor IV fluids normal saline at 70 mL per hour Pain management with morphine 4 mg IV every 4 hours when necessary Zofran 4 mg IV every 4 hours when necessary for nausea, vomiting Riley's catheter for urinary obstruction Hold apixaban, temperature paracentesis performed and done DVT prophylaxis with bilateral SCDs Continue all home meds Had extensive discussion with patient and her stepdaughter at bedside and poor prognosis was explained and patient was given the option of hospice or comfort care measures. Considering patient's extended carcinoma, not responding to chemotherapy. Patient and family will think about it and will inform me (2) Malignant ascites Status: Chronic Problem Text: Will get therapeutic paracentesis done tomorrow with INR Labs in a.m. (3) Urinary retention Status: Acute Problem Text: Secondary to ureteral obstruction bilaterally by pelvic masses Riley catheter was placed in with 400 mL of urinary output Monitor I and O Might require nephrostomy tube if does not opt for comfort care Plan/VTE VTE Prophylaxis Ordered?: Yes VS, I&O, 24H, Fishbone Vital Signs/I&O Vital Signs Date Time Temp Pulse Resp B/P (MAP) Pulse Ox O2 Delivery O2 Flow Rate FiO2 12/20/19 09:47 83 118/55 12/20/19 06:05 97.9 20 96 Room Air I&O- Last 24 Hours up to 6 AM 12/20/19 06:00 Intake Total 150 ml Output Total 350 ml Balance -200 ml Laboratory Data 24H LABS Laboratory Tests 2 12/19/19 12:07: Urine Color YELLOW, Urine Appearance CLEAR, Urine pH 5.0, Urine Specific [place] 1.017, Urine Protein NEGATIVE, Urine Glucose (UA) NEGATIVE, Urine Ketones NEGATIVE, Urine Blood NEGATIVE, Urine Nitrite NEGATIVE, Urine Bilirubin NEGATIVE, Urine Urobilinogen 0.2, Urine Leukocyte Esterase NEGATIVE, Urine WBC (Auto) 2, Urine RBC (Auto) 26H, Urine Hyaline Casts (Auto) 0, Urine Bacteria (Auto) NEGATIVE, Urine Squamous Epithelial Cells 0, Urine Uric Acid Crystals (Auto) SMALL, Urine Amorphous Sediment SMALLH, Urine Sperm (Auto) 12/19/19 14:02: Immature Granulocyte % (Auto) 1.0, Neutrophils (%) (Auto) 80.8H, Lymphocytes (%) (Auto) 12.7L, Monocytes (%) (Auto) 3.9, Eosinophils (%) (Auto) 1.2, Basophils (%) (Auto) 0.4, Neutrophils # (Auto) 4.0, Lymphocytes # (Auto) 0.6L, Monocytes # (Auto) 0.2, Eosinophils # (Auto) 0.1, Basophils # (Auto) 0.0, Nucleated Red Blood Cells % (auto) 0.0, Anion Gap 12, Glomerular Filtration Rate 37.8L, Calcium Level 8.9, Total Bilirubin 0.5, Direct Bilirubin 0.2, Aspartate Amino Transf (AST/SGOT) 28, Alanine Aminotransferase (ALT/SGPT) 13, Alkaline Phosphat ase 58, Total Creatine Kinase 32, Creatine Kinase MB < 1.0, Creatine Kinase MB Relative Index 3.12, Troponin I < 0.02, Total Protein 5.3L, Albumin 2.4L, Albumin/Globulin Ratio 0.83L, Lipase 89, Thyroid Stimulating Hormone (TSH) 2.240, Free Thyroxine 1.60H 12/19/19 21:06: Nucleated Red Blood Cells % (auto) 0.0, Anion Gap 9, Glomerular Filtration Rate 35.5L, Calcium Level 9.1, Total Bilirubin 0.4, Aspartate Amino Transf (AST/SGOT) 31, Alanine Aminotransferase (ALT/SGPT) 15, Alkaline Phosphatase 60, Total Protein 5.4L, Albumin 2.5L, Albumin/Globulin Ratio 0.86L CBC/BMP Laboratory Tests 12/19/19 14:02 12/19/19 21:06 KENYA GUEVARA MD Dec 20, 2019 10:42
[2019-12-20 14:00] VITALS: BP 123/59
--- NOTE | 2019-12-20 20:31 | ECGEPIP ---
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
[2019-12-20] MEDS: CALCIUM CARBONATE 500 MG CHEW U/D PO PRN (20:59)
[2019-12-20 22:00] VITALS: BP 134/66
[2019-12-21 06:00] VITALS: BP 132/66
[2019-12-21] MEDS: DOCUSATE SODIUM 100 MG CAP PO SCH ×2 (10:46→20:33)
[2019-12-21] MEDS: ASCORBIC ACID 500 MG TAB PO SCH (10:47)
[2019-12-21] MEDS: ATORVASTATIN 20 MG TAB PO SCH (10:47)
[2019-12-21] MEDS: VITAMIN D 1,000 INTERNATIONAL UNITS TABLET PO SCH (10:47)
[2019-12-21] MEDS: LABETALOL 100 MG TAB PO SCH ×2 (10:49→20:34)
--- NOTE | 2019-12-21 10:54 | IPNPDOC ---
Subjective Date Seen The patient was seen on 12/21/19. Subjective Chief Complaint/HPI Patient is scheduled for paracentesis from malignant ascites today in no apparent distress General: Denies: ROS Unobtainable, Chills, Night Sweats, Fatigue, Malaise, Normal Appetite, Other Symptoms Constitutional: Denies: Chills, Fever, Malaise, Night Sweats, Weakness, Fatigue, Weight Loss, Lethargy, Other Pulmonary: Denies: Dyspnea, Cough, Pleuritic Chest Pain, Other Symptoms Cardiovascular: Denies: Chest Pain, Palpitations, Orthopnea, Paroxysmal Noc. Dyspnea, Edema, Lt Headedness, Other Symptoms Gastrointestinal: Denies: Nausea, Vomiting, Abdominal Pain, Diarrhea, Constipation, Melena, Hematochezia, Other Symptoms Musculoskeletal: Denies: Neck Pain, Back Pain, Shoulder Pain, Arm Pain, Hand Pain, Leg Pain, Foot Pain, Joint Pain, Muscle Pain, Spasms, Other Symptoms Neurological: Denies: Weakness, Numbness, Incoordination, Change in speech, Confusion, Seizures, Other Symptoms Objective Physical Examination Neck Exam: Positive: Supple Chest Exam: Positive: Clear to auscultation, Normal air movement Heart Exam: Positive: Rate Normal, Normal S1, Normal S2 Abdomen Exam: Positive: Other (, distended, mild tenderness all over the abdomen. Bowel sounds present) Extremity Exam: Positive: Other (. Bilateral bipedal edema) Skin Exam: Positive: Nl turgor and temperature Neuro Exam: Positive: Strength at 5/5 X4 ext, Sensation Intact, Cranial Nerves 3-12 NL Psych Exam: Positive: Mood NL, Oriented x 3 Assessment /Plan Problems (1) Cancer of gallbladder Status: Chronic Problem Text: 73 years old lady diagnosed with gallbladder carcinoma under chemotherapy at [facility]. , Heart rate is 85, blood pressure 139/67, pulse ox 95% on room air Patient. WBC count is 4.9, hemoglobin 9, hematocrit 29.3, platelets 356. Electrolytes are normal with BUN 24, creatinine 1.44. Urine showed RBC [address] abdomen and pelvis shows multiple abdominal pelvic pericardial implants, peritoneal adenopathy which looks like masses. Bilateral hydronephr osis secondary to ureteral obstruction from pelvic masses Periaortic adenopathy, bilateral adrenal masses borderline dilated fluid-filled loops of small bowel and loops of sigmoid colon and possibly incorporated some of the pelvic masses but no small bowel or large bowel obstruction DVT prophylaxis with bilateral SCDs Continue all home meds Had extensive discussion with patient and her stepdaughter at bedside and poor prognosis was explained and patient was given the option of hospice or comfort care measures. Considering patient's extended carcinoma, not responding to chemotherapy. Patient and family will think about it and will inform me Patient is scheduled for paracentesis for malignant ascites today Continue Riley care Will discuss with patient and family again regarding comfort care monitor if not, then patient can be discharged home with indwelling Riley catheter for urinary obstruction and follow up with her oncologist as an outpatient (2) Malignant ascites Status: Chronic Problem Text: Patient is scheduled for paracentesis today Possible discharge home. Patient is stable clinically. Today (3) Urinary retention Status: Acute Problem Text: Secondary to ureteral obstruction bilaterally by pelvic masses Riley catheter was placed in with 400 mL of urinary output Monitor I and O Might require nephrostomy tube if does not opt for comfort care Plan/VTE VTE Prophylaxis Ordered?: Yes VS, I&O, 24H, Fishbone Vital Signs/I&O Vital Signs Date Time Temp Pulse Resp B/P (MAP) Pulse Ox O2 Delivery O2 Flow Rate FiO2 12/21/19 09:03 78 16 95 Room Air 12/21/19 08:25 98.6 12/21/19 06:00 132/66 (88) I&O- Last 24 Hours up to 6 AM 12/21/19 06:00 Intake Total 750 ml Output Total 550 ml Balance 200 ml KENYA GUEVARA MD Dec 21, 2019 10:54
[2019-12-21] MEDS ORDERED: SODIUM CHLORIDE 0.9% INJ 10 ML SYR IV PRN (11:30)
--- NOTE | 2019-12-21 13:22 | REP ---
Ultrasound-guided paracentesis The procedure was performed by NILESH Terry, under the direct supervision of Dr. Agustin. The risks and benefits of the procedure were explained to the patient and informed consent was obtained both verbally and written. Directly prior to the start of the procedure, a formal timeout was completed in the procedure room. Under ultrasound guidance, the largest pocket of fluid in the left flank was localized and skin was marked. The skin was then prepped and draped in a sterile fashion. 10 ml of 1% lidocaine 10 mg/ml was used as a local anesthetic. Using ultrasound guidance, an 8-Sami multi side-hole catheter was inserted using trocar technique. 3,000 mL of dark compa colored fluid was withdrawn and discarded. The patient tolerated the procedure well and there were no immediate complications. After the appropriate monitored convalescence the patient was discharged from the department. Reviewed by NILESH Whitaker 12/21/2019 09:29 A Electronically Signed by Jose L Agustin MD 12/21/2019 01:13 P
[2019-12-21 14:00] VITALS: BP 116/56
[2019-12-21] MEDS: ACETAMINOPHEN TAB 650MG DOSE (2X325MG) PO PRN (20:33)
[2019-12-21 22:00] VITALS: BP 139/68
[2019-12-22 06:00] VITALS: BP 128/68
[2019-12-22 06:04] LABS: BASO % 0.5 % (0.0-1.0); EOS # 0.2 10^3/uL (0.0-0.5); EOS % 2.7 % (0.0-3.0); HEMATOCRIT 29.2 % (36.0-47.0); HEMOGLOBIN 9.4 g/dl (12.0-15.5); LYMPH # 1.2 10^3/uL (1.5-5.0); LYMPH % 19.7 % (24.0-44.0); MEAN CORPUSCULAR HEMOGLOBIN 28.7 pg (27.0-33.0); MEAN CORPUSCULAR HGB CONC 32.2 g/dl (32.0-36.5); MEAN CORPUSCULAR VOLUME 89.3 fl (80.0-96.0); MONO # 0.5 10^3/uL (0.0-0.8); MONO % 9.2 % (0.0-5.0); NEUTROPHILS # 3.9 10^3/uL (1.5-8.5); NEUTROPHILS % 67.4 % (36.0-66.0); PLATELET COUNT, AUTOMATED 317 10^3/uL (150-450); RED BLOOD COUNT 3.27 10^6/uL (4.00-5.40); WHITE BLOOD COUNT 5.9 10^3/uL (4.0-10.0)
[2019-12-22 06:28] LABS: ALBUMIN 2.1 GM/DL (3.2-5.2); BILIRUBIN,TOTAL 0.3 MG/DL (0.2-1.0); CALCIUM LEVEL 7.8 MG/DL (8.8-10.2); CREATININE FOR GFR 1.51 MG/DL (0.55-1.30); GLOMERULAR FILTRATION RATE 35.8 (>39); POTASSIUM SERUM 4.1 MEQ/L (3.5-5.1); TOTAL PROTEIN 5.2 GM/DL (6.4-8.2)
[2019-12-22] MEDS: SODIUM CHLORIDE 0.9% INJ 10 ML SYR IV SCH (08:45)
[2019-12-22] MEDS: VITAMIN D 1,000 INTERNATIONAL UNITS TABLET PO SCH (08:45)
[2019-12-22] MEDS: DOCUSATE SODIUM 100 MG CAP PO SCH ×2 (08:46→20:20)
[2019-12-22] MEDS: LABETALOL 100 MG TAB PO SCH ×2 (08:46→20:20)
[2019-12-22] MEDS: ASCORBIC ACID 500 MG TAB PO SCH (08:46)
[2019-12-22] MEDS: ATORVASTATIN 20 MG TAB PO SCH (08:46)
--- NOTE | 2019-12-22 12:39 | IPNPDOC ---
Subjective Date Seen The patient was seen on 12/22/19. Subjective Chief Complaint/HPI Patient is feeling much better. She is a scheduled for pleural catheter tomorrow and then will possibly be discharged home on home hospice General: Denies: ROS Unobtainable, Chills, Night Sweats, Fatigue, Malaise, Normal Appetite, Other Symptoms Constitutional: Denies: Chills, Fever, Malaise, Night Sweats, Weakness, Fatigue, Weight Loss, Lethargy, Other Eyes: Denies: Pain, Vision change, Conjunctivae inflammation, Eyelid inflammation, Redness, Other Pulmonary: Denies: Dyspnea, Cough, Pleuritic Chest Pain, Other Symptoms Cardiovascular: Denies: Chest Pain, Palpitations, Orthopnea, Paroxysmal Noc. Dyspnea, Edema, Lt Headedness, Other Symptoms Gastrointestinal: Denies: Nausea, Vomiting, Abdominal Pain, Diarrhea, Constipation, Melena, Hematochezia, Other Symptoms Musculoskeletal: Denies: Neck Pain, Back Pain, Shoulder Pain, Arm Pain, Hand Pain, Leg Pain, Foot Pain, Joint Pain, Muscle Pain, Spasms, Other Symptoms Neurological: Denies: Weakness, Numbness, Incoordination, Change in speech, Confusion, Seizures, Other Symptoms Objective Physical Examination Neck Exam: Positive: Supple Chest Exam: Positive: Clear to auscultation, Normal air movement Heart Exam: Positive: Rate Normal, Normal S1, Normal S2 Abdomen Exam: Positive: Other (, distended, mild tenderness all over the abdomen. Bowel sounds present) Extremity Exam: Positive: Other (. Bilateral bipedal edema) Skin Exam: Positive: Nl turgor and temperature Neuro Exam: Positive: Strength at 5/5 X4 ext, Sensation Intact, Cranial Nerves 3-12 NL Psych Exam: Positive: Mood NL, Oriented x 3 Assessment /Plan Problems (1) Cancer of gallbladder Status: Chronic Problem Text: 73 years old lady diagnosed with gallbladder carcinoma under chemotherapy at [facility]. , Heart rate is 85, blood pressure 139/67, pulse ox 95% on room air Patient. WBC count is 4.9, hemoglobin 9, hematocrit 29.3, platelets 356. Electrolytes are normal with BUN 24, creatinine 1.44. Urine showed RBC [address] abdomen and pelvis shows multiple abdominal pelvic pericardial implants, peritoneal adenopathy which looks like masses. Bilateral hydronephrosis secondary to ureteral obstruction from pelvic masses Periaortic adenopathy, bilateral adrenal masses borderline dilated fluid-filled loops of small bowel and loops of sigmoid colon and possibly incorporated some of the pelvic masses but no small bowel or large bowel obstruction DVT prophylaxis with bilateral SCDs Continue all home meds To continue Riley catheter for drainage Patient and family has decided about home hospice, patient is scheduled to get poor catheter tomorrow by interventional radiology and if the home hospice is arranged that she'll be discharged back home on hospice (2) Malignant ascites Status: Chronic Problem Text: Patient is about done with removal of about 3 L of fluid Pleurx catheter in a.m. (3) Urinary retention Status: Acute Problem Text: Secondary to ureteral obstruction bilaterally by pelvic masses Riley catheter was placed in with 400 mL of urinary output Monitor I and O Might require nephrostomy tube if does not opt for comfort care Plan/VTE VTE Prophylaxis Ordered?: Yes VS, I&O, 24H, Fishbone Vital Signs/I&O Vital Signs Date Time Temp Pulse Resp B/P (MAP) Pulse Ox O2 Delivery O2 Flow Rate FiO2 12/22/19 08:46 80 128/68 12/22/19 06:00 98.1 16 97 Room Air I&O- Last 24 Hours up to 6 AM 12/22/19 06:00 Intake Total 2246 ml Output Total 1500 ml Balance 746 ml Laboratory Data 24H LABS Laboratory Tests 2 12/22/19 05:47: Immature Granulocyte % (Auto) 0.5, Neutrophils (%) (Auto) 67.4H, Lymphocytes (%) (Auto) 19.7L, Monocytes (%) (Auto) 9.2H, Eosinophils (%) (Auto) 2.7, Basophils (%) (Auto) 0.5, Neutrophils # (Auto) 3.9, Lymphocytes # (Auto) 1.2L, Monocytes # (Auto) 0.5, Eosinophils # (Auto) 0.2, Basophils # (Auto) 0.0, Nucleated Red Blood Cells % (auto) 0.0, Anion Gap 5L, Glomerular Filtration Rate 35.8L, Calcium Level 7.8L, Total Bilirubin 0.3, Aspartate Amino Transf (AST/SGOT) 26, Alanine Aminotransferase (ALT/SGPT) 13, Alkaline Phosphatase 57, Total Protein 5.2L, Albumin 2.1L, Albumin/Globulin Ratio 0.68L CBC/BMP Laboratory Tests 12/22/19 05:47 KENYA GUEVARA MD Dec 22, 2019 12:39
[2019-12-22 14:00] VITALS: BP 128/66
[2019-12-22] MEDS: CALCIUM CARBONATE 500 MG CHEW U/D PO PRN (20:19)
[2019-12-22] MEDS: ACETAMINOPHEN TAB 650MG DOSE (2X325MG) PO PRN (20:19)
[2019-12-22 22:00] VITALS: BP 148/76
[2019-12-23 06:00] VITALS: BP 129/63
[2019-12-23] MEDS ORDERED: MIDAZOLAM INJ 2 MG/2 ML VIAL (J2250) As Ordered ONE (07:53)
[2019-12-23] MEDS ORDERED: diphenhydrAMINE INJ 50MG/ML VIAL (J1200) As Ordered ONE (07:53)
[2019-12-23] MEDS ORDERED: fentaNYL 100 MCG/2 ML INJECTION (J3010) As Ordered ONE (07:53)
--- NOTE | 2019-12-23 08:03 | IRMSE ---
[facility] IR Moderate Sedation Eval. Date and Time Date: Dec 23, 2019 Time: 08:03 ASA Classification ASA Classification: III-Severe systemic dis. Mallampati Score: II NPO: Yes Obstructive Sleep Apnea: No Interval Plan: moderate sedation JIGNESH CHEW MD Dec 23, 2019 08:03
[2019-12-23] MEDS ORDERED: ceFAZolin 1GM INJ (J0690 PER 500MG) As Ordered ONE (08:09)
[2019-12-23] MEDS ORDERED: LIDOCAINE 1% MDV 20ML VIAL As Ordered ONE (08:49)
[2019-12-23 09:13] VITALS: BP 134/65
[2019-12-23 09:48] VITALS: BP 134/65
[2019-12-23] MEDS: ASCORBIC ACID 500 MG TAB PO SCH (09:48)
[2019-12-23] MEDS: DOCUSATE SODIUM 100 MG CAP PO SCH (09:48)
[2019-12-23] MEDS: VITAMIN D 1,000 INTERNATIONAL UNITS TABLET PO SCH (09:48)
[2019-12-23] MEDS: ACETAMINOPHEN TAB 650MG DOSE (2X325MG) PO PRN (09:48)
[2019-12-23] MEDS: LABETALOL 100 MG TAB PO SCH (09:48)
[2019-12-23] MEDS: SODIUM CHLORIDE 0.9% INJ 10 ML SYR IV SCH (09:49)
[2019-12-23] MEDS: ATORVASTATIN 20 MG TAB PO SCH (09:49)
[2019-12-23] MEDS ORDERED: HYOS125TA PO (10:37)
[2019-12-23] MEDS ORDERED: MORP20SO3 PO (10:37)
[2019-12-23] MEDS ORDERED: LORA0.5T5 PO (10:37)
--- NOTE | 2019-12-23 13:33 | POST-OPPD ---
Postoperative Procedure Note Date Of Procedure: Dec 23, 2019 Time Of Procedure: 10:14 PREOPERATIVE DIAGNOSIS: malignant ascites abdomen POSTOPERATIVE DIAGNOSIS: same FINDINGS: abdominal ascites PROCEDURE: PleurX placed SURGEON: brian ANESTHESIA: mod sed ESTIMATED BLOOD LOSS: < 5 ml COMPLICATIONS: none POSTOPERATIVE CONDITION: stable JIGNESH CHEW MD Dec 23, 2019 13:33
--- NOTE | 2019-12-23 13:57 | DS.PDOC ---
Discharge Summary General Date of Admission Dec 19, 2019 at 17:27 Date of Discharge 12/23/19 Discharge Summary PROCEDURES PERFORMED DURING STAY:Pleuri-x cath ADMITTING DIAGNOSES: 1. Gallbladder carcinoma, malignant ascites . DISCHARGE DIAGNOSES: 1. Gallbladder carcinoma, malignant ascites. COMPLICATIONS/CHIEF COMPLAINT: Malignant Ascites. HISTORY OF PRESENT ILLNESS: This is 73 years old white female with past medical history of for aggressive gallbladder carcinoma. Also, history of ascites, PE is receiving chemotherapy at the [facility] came in with a chief complaint of unable to urinate. Also complaining of swelling of left leg and pain in her both legs and also distention of abdomen since last few days. As per patient, patient abdominal pain is dull, persistent increases on palpation. No relief with meds only gets relief with paracentesis, nonradiating and associated nausea. Pain has been present since last few days. Patient denies any complaints of chest pain, shortness of breath, syncope, etc.. HOSPITAL COURSE: 78 years old female with the gallbladder carcinoma with distant metastasis and recurrent malignant ascites was admitted for symptom relief. P atient was sent to IR for paracentesis removal of 3 L of acetic fluid. Patient also received pain medications and supportive measures. While in hospital. Patient and family decided to pursue hospice at home and hence, pleuri-x catheter was placed in for removal of ascites is needed. Patient was also started on hospice bundle of pain medications and was discharged home today to home with hospice for comfort measures only. On discharge patient is comfortable in no distress and follow with her hospice home health aide for further recommendations.. DISCHARGE MEDICATIONS: Please see below. ALLERGIES: Please see below. PHYSICAL EXAMINATION ON DISCHARGE: VITAL SIGNS: Please see below. GENERAL: Within normal limits HEENT: PERRLA. Extraocular muscles intact NECK: Supple CARDIOVASCULAR EXAMINATION: S1, S2, regular RESPIRATORY EXAMINATION: Clear to A&P ABDOMINAL EXAMINATION: Distended with pleural catheter in place EXTREMITIES: no Clubbing, cyanosis, edema SKIN: The normal limit. NEUROLOGICAL EXAMINATION: No focal motor sensory deficit PSYCHIATRIC EXAMINATION: Normal LABORATORY DATA: Please see below. IMAGING: The abdomen and pelvis: Impression: History of gallbladder carcinoma. Multiple abdominal and pelvic peritoneal implants. Peritoneal adenopathy resulting in masses. Bilateral hydronephrosis, likely secondary to ureteral obstruction from the pelvic masses. The periaortic adenopathy. Bilateral adrenal masses. Borderline dilated fluid-filled loops of small bowel. The loops of distal sigmoid colon or possibly incorporated some of the pelvic masses. There is no colonic obstruction. PROGNOSIS: ACTIVITY: As tolerated. DIET: As tolerated DISCHARGE PLAN: Home with hospice DISPOSITION: 50 Hospice Home. DISCHARGE INSTRUCTIONS: 1. As per discharge instructions. ITEMS TO FOLLOWUP ON ON OUTPATIENT: 1. With hospice. DISCHARGE CONDITION: Stable. TIME SPENT ON DISCHARGE: 40 minutes. Vital Signs/I&Os Vital Signs Date Time Temp Pulse Resp B/P (MAP) Pulse Ox O2 Delivery O2 Flow Rate FiO2 12/23/19 09:48 72 134/65 12/23/19 09:13 18 97 Room Air 2 12/23/19 07:50 98 I&O- Last 24 Hours up to 6 AM 12/23/19 06:00 Intake Total 870 ml Output Total 625 ml Balance 245 ml Discharge Medications Scheduled PRN Hyoscyamine Sulfate (Hyoscyamine Sulfate) 0.125 Mg Tab.subl, 0.125 MG PO Q4HP PRN for TERMINAL SECRETIONS Use sublingually if unable to swallow Lorazepam (Lorazepam) 0.5 Mg Tablet, 0.5 MG PO Q4HP PRN for ANXIETY/AGITATION Use sublingually if unable to swallow Morphine Sulfate (Morphine Sulfate) 100 Mg/5 Ml Solution, 0.25-1 ML PO Q2H PRN for PAIN OR DYSPNEA Use sublingually if unable to swallow Allergies Coded Allergies: Egg Derived (Verified Allergy, Unknown, 02/23/19) egg (Verified Allergy, Unknown, 02/23/19) influenza virus vacc trivalent, spl (Verified Allergy, Unknown, 02/23/19) tetanus toxoid, adsorbed (Verified Allergy, Unknown, 02/23/19) KENYA GUEVARA MD Dec 23, 2019 13:57
--- NOTE | 2019-12-23 14:19 | REP ---
IR Ultrasound and fluoroscopy-guided abdominal PleurX placement. IR Ultrasound of the abdomen. IR Moderate sedation. Clinical information: Malignant ascites. Physician: Dr. Chen. Procedure: The patient was advised of the benefits, risks, and alternatives of the procedure and informed consent was obtained. A time-out was performed with verification of the patient's name, MRN, site of procedure and type of procedure to be performed. The patient was positioned in the supine position on the angiographic table. The site was prepped and draped in the usual sterile fashion. Moderate sedation was performed by the physician including the presence of an independent trained observer who assisted and monitored the patient's level of consciousness and physiologic status. Following the administration of Fentanyl and Versed, the physician spent 45 minutes of continuous face to face time with the patient. Limited ultrasound of the abdomen reveals moderate ascites. A saturator tender radiograph reveals surgical clips in the right upper quadrant. The anticipated puncture site was identified using sonographic guidance and the overlying skin and subcutaneous tissues were anesthetized with lidocaine. An 18 gauge needle was inserted under ultrasound guidance into the left lower quadrant. An Amplatz wire was advanced through the needle under fluoroscopy guidance into the peritoneum. The needle was removed and exchanged for a dilator, under fluoroscopy guidance. A small skin incision was made at the catheter insertion site. A second incision was made a small distance from original incision. The catheter was then subcutaneously tunneled from the exit site incision to the insertion site incision. The catheter insertion site was then serially dilated under fluoroscopy guidance and a peel-away sheath was then placed. The catheter was then passed through the peel-away sheath into the peritoneal cavity and the peel away sheath was removed. Placement in the peritoneal cavity was confirmed by return of ascetic fluid. The dedicated catheter drainage cap was attached. The catheter insertion site was closed with Monocryl. A sterile dressing was applied. The patient tolerated the procedure well and was returned to the PRU in stable condition. EBL: < 5 ml. Complications: None. Conclusion: 1. Ultrasound abdomen demonstrates moderate ascites. 2. Successful placement of a tunneled peritoneal drainage catheter in the left lower quadrant. The patient requires dressing changes and drainage kit for drainage as-needed. Thank you for this referral. Electronically Signed by Pao Chen MD 12/23/2019 02:18 P
== END 2019-12-23 12:35 | disposition hospice, home (50) | DRG 436 ==
LOC: M ED 11:31 → M ED INP 17:27 → ENRESERV 12-20 04:14 → M MSPAV 12-20 06:03
PROVIDERS: ADMIT Internal Medicine; ATTEND Internal Medicine
PROC: 0W9G3ZZ Drainage of Peritoneal Cavity, Percutaneous Approach (ICD-10-PCS; 2019-12-21)
PROC: 0W9G30Z Drainage of Peritoneal Cavity with Drainage Device, Percutaneous Approach (ICD-10-PCS; principal; 2019-12-23 07:30)
DX: C23 Malignant neoplasm of gallbladder (principal); R18.0 Malignant ascites; N39.0 Urinary tract infection, site not specified; C79.89 Secondary malignant neoplasm of other specified sites; E78.5 Hyperlipidemia, unspecified; R33.9 Retention of urine, unspecified; E53.8 Deficiency of other specified B group vitamins; I10 Essential (primary) hypertension; Z79.01 Long term (current) use of anticoagulants; Z79.82 Long term (current) use of aspirin; Z79.899 Other long term (current) drug therapy; Z88.7 Allergy status to serum and vaccine; Z91.012 Allergy to eggs